=== PATIENT | female | born 1970 | race Two or more races ===

== ENCOUNTER → 2019-12-14 | Emergency (ER) | payer MEDICAID, OTHER ==
[~2019-12-14] VITALS: Ht 167.6 cm; Wt 102.1 kg
[~2019-12-14] MED LIST: LISI-648; LORA-205; LORazepam 0.5 MG TAB PO ONE
[2019-12-14 21:58] LABS: Eosinophils # (auto) 0 10 ^3/uL (0-0.8); Lymphocytes # (auto) 1.4 10 ^3/uL (0.4-5.4); Mean Corpuscular Volume 76.8 fL (80.0-100.0); Neutrophils # (auto) 3.7 10 ^3/uL (1.6-8.6); Nucleated Red Blood Cells % 0.1 %
[2019-12-14 22:00] LABS: Basophils # (auto) 0.1 10 ^3/uL (0-0.2); Eosinophils % (auto) 0.7 % (0.0-7.0); Hematocrit 33.7 % (36.0-46.0); Mean Corpuscular Hemoglobin 24.9 pg (28.0-32.0); Mean Corpuscular Hgb Conc. 32.5 g/dL (32.0-36.0); Monocytes # (auto) 0.4 10 ^3/uL (0-1.3); Monocytes % (auto) 7.8 % (0.0-12.0); Neutrophils % (auto) 65.5 % (37.0-80.0); Platelet Count (auto) 328 10^3/uL (140-450); Red Blood Cells 4.39 10^6/uL (4.0-5.20); White Blood Cell 5.6 10^3/uL (4.4-10.8)
[2019-12-14 22:02] LABS: Red Cell Distribution Width 21.3 % (11.8-14.3)
[2019-12-14 22:13] LABS: INR 1.08 (0.9-1.15); Partial Thromboplastin Time 28.2 sec (23.0-31.2)
[2019-12-14 22:18] LABS: Albumin 3.7 g/dL (3.4-5.0); BUN/Creatinine Ratio 10.7; Calcium 8.9 mg/dL (8.5-10.1); Potassium 3.5 mmol/L (3.5-5.1)
[2019-12-14 22:21] LABS: Bilirubin, Total 0.2 mg/dL (0.2-1.0); Total Protein 7.5 g/dL (6.4-8.2)
[2019-12-14 23:40] LABS: Urine Bacteria FEW /hpf (None Seen); Urine Blood 2+ /uL (Negative); Urine Specific Gravity 1.012 (1.001-1.035); Urine WBC <1 /hpf (0 - 5)
[2019-12-15 02:14] VITALS: BP 127/69
== END | disposition home or self-care (01) ==
LOC: EDUNIT# 20:58 → EDBD 21:14 → ER 21:16
DX: N39.0 Urinary tract infection, site not specified (principal); D25.9 Leiomyoma of uterus, unspecified; N72 Inflammatory disease of cervix uteri; N88.8 Other specified noninflammatory disorders of cervix uteri; I10 Essential (primary) hypertension
CPT/HCPCS: 36415; 76830; 76856; 80053; 81001; 84702; 85025; 85610; 85730; 86850; 86900; 86901

== ENCOUNTER 2020-03-28 02:09 | Emergency (ER) | payer OTHER ==
[~2020-03-28] VITALS: Ht 167.6 cm; Wt 77.1 kg
[~2020-03-28 02:09] MED LIST changes: -LORazepam 0.5 MG TAB PO ONE
[2020-03-28 02:15] VITALS: BP 143/85
== END 2020-03-28 02:55 | disposition left against medical advice (07) ==
LOC: EDBD 02:09 → ER 02:10
DX: R00.2 Palpitations (principal); Z53.21 Procedure and treatment not carried out due to patient leaving prior to being seen by health care provider